=== PATIENT | male | born 1970 | race Caucasian/White ===

== ENCOUNTER 2022-10-09 09:04 | Outpatient (CLI) | payer MEDICAID, SELFPAY ==
[2022-10-09 13:28] LABS: Chloride* 107 mmol/L (96-114); Potassium* 4.4 mmol/L (3.6-5.1); Sodium* 139 mmol/L (135-149)
[2022-10-09 13:30] LABS: Creatinine* 0.8 mg/dL (0.5-1.5); Estimated Glomerular Filt Rate 105 ml/min
[2022-10-09 13:31] LABS: Blood Urea Nitrogen* 12 mg/dL (7-30); Carbon Dioxide* 28 mmol/L (20-32); Glucose* 97 mg/dL (60-115); Triglycerides* 121 mg/dL (40-149)
[2022-10-09 13:32] LABS: Calcium* 9.1 mg/dL (8.4-10.6); HDL Cholesterol* 50 mg/dL (>=40)
[2022-10-10 19:07] LABS: Cholesterol* 176 mg/dL (90-199); LDL Cholesterol Calculated 102 mg/dL (<100)
== END 2022-10-09 09:05 | disposition home or self-care (01) ==
PROVIDERS: PCP Emergency Medicine; Visit Provider Emergency Medicine
DX: Z00.00 Encounter for general adult medical examination without abnormal findings (principal); R03.0 Elevated blood-pressure reading, without diagnosis of hypertension; D69.6 Thrombocytopenia, unspecified; Z12.5 Encounter for screening for malignant neoplasm of prostate; Z13.6 Encounter for screening for cardiovascular disorders
CPT/HCPCS: 80048; 80061

== ENCOUNTER 2022-10-23 18:36 | Outpatient (CLI) | payer MEDICAID, SELFPAY ==
[2022-10-23 22:22] LABS: PSA Screen* 0.65 ng/mL (0.10-4.00)
== END 2022-10-23 18:37 | disposition home or self-care (01) ==
LOC: LKVREF 18:37
PROVIDERS: PCP Emergency Medicine; Visit Provider Emergency Medicine
DX: Z12.5 Encounter for screening for malignant neoplasm of prostate (principal)
CPT/HCPCS: 84153

== ENCOUNTER 2022-11-27 09:30 | Outpatient (RCR) | payer MEDICAID, SELFPAY | END 2023-01-14 14:47 | disposition home or self-care (01) | PROVIDERS: PCP Emergency Medicine; Visit Provider Emergency Medicine | DX: M25.511 Pain in right shoulder (principal); Z51.89 Encounter for other specified aftercare | CPT/HCPCS: 97110; 97140; 97161 ==

== ENCOUNTER 2023-10-15 12:55 | Outpatient (CLI) | payer MEDICAID, SELFPAY | END 2023-10-15 12:56 | disposition home or self-care (01) | LOC: LKVREF 12:56 | PROVIDERS: PCP Emergency Medicine; Visit Provider Emergency Medicine | DX: Z01.818 Encounter for other preprocedural examination (principal) | CPT/HCPCS: 80048 ==

== ENCOUNTER 2023-11-01 11:03 | Day surgery (SDC) | payer MEDICAID, SELFPAY ==
[2023-11-01] VITALS (12 sets, daily range): BP systolic 137–151; BP diastolic 78–100; PULSE 57–81; RESP 12–16; TEMP 36.3–36.7; O2SAT 97–98; BMI 27.9
[2023-11-01] MEDS: LACTATED RINGERS 1000 ML 1,000 ML 100 ML IV (11:55)
[2023-11-01] MEDS: SODIUM CHLORIDE 0.9 % (FLUSH) 10 ML SYRINGE IVF (11:55)
[2023-11-01] MEDS: OXYMETAZOLINE 0.05% NASAL SPRAY 2 SPRAY NOSTRIL-B (12:04)
--- NOTE | 2023-11-01 13:05 | W.ANESCHARGE ---
Anesthesia Charges Start Date/Time Anesthesia Start Date: 11/01/23 Anesthesia Start Time: 12:54 Stop Date/Time Anesthesia Stop Date: 11/01/23 Anesthesia Stop Time: 13:35
[2023-11-01] MEDS: COCAINE HCL 4 % 4 ML SOLUTION NOSTRIL-B (13:08)
[2023-11-01] MEDS: AYR SALINE NASAL GEL 1 APPLIC NOSTRIL-B (13:12)
[2023-11-01] MEDS: MUPIROCIN 1 GM PACKET 1 APPLIC TOPICAL (13:14)
[2023-11-01] MEDS: BUPIVACAINE 0.5 %/EPI 1:200K 3 ML INJECTION (13:23)
--- NOTE | 2023-11-01 13:38 | W.ANESCHARGE ---
Anesthesia Charges Start Date/Time Anesthesia Start Date: 11/01/23 Anesthesia Start Time: 12:54 Stop Date/Time Anesthesia Stop Date: 11/01/23 Anesthesia Stop Time: 13:35
--- NOTE | 2023-11-01 13:48 | P.ENTPROC_ITS ---
Procedure Note Date of procedure: 11/01/23 Procedure: Preop diagnosis nasal obstruction migraine headache that appeared to possibly be nasal, as nasal sinal headaches, deviated septum, inferior turbinate hypertrophy Postoperative diagnosis same Procedure nasal septoplasty, submucous partial resection inferior turbinates Under general endotracheal anesthesia patient was prepped and draped usual fashion the nose decongested injected. The septum was quite tortuous. A right hemitransfixion incision was made and left anterior posterior tunnels were created. A vertical incision was made through the cartilage and a right posterior tunnel created. The posterior deflected portions of septal bone were resected. A large piece was trimmed and returned to the posterior intraseptal space. The left middle turbinate was crushed with the Devyn forceps. A stab incision was made in the anterior of the right inferior turbinate a tunnel created with a [place] dissector. The marie bone was outfractured a conservative anterior submucous resection was performed. The Coblation was used for hemostasis and to cauterize intramurally along the inferior 10%. This was repeated on the left side in identical fashion. The hemitransfixion was closed with 2 4-0 chromic sutures silastic stents secured with 3-0 nylon and a single Merocel pack was placed in each side of the nose after 1st being coated in Bactroban. The patient procedure was taken recovery in satisfactory condition. Blood loss was less than 20 mL. Surgeon: Mahad Jensen MD
== END 2023-11-01 15:00 | disposition home or self-care (01) ==
PROVIDERS: PCP Emergency Medicine; Visit Provider Otolaryngology
PROC: (CPT 30520; principal; 2023-11-01 12:30)
DX: J34.2 Deviated nasal septum (principal); J34.3 Hypertrophy of nasal turbinates; G43.909 Migraine, unspecified, not intractable, without status migrainosus
CPT/HCPCS: 30520; 30140; 00160; A9270; J1100; J2405; J2704; J3010; J3490; J7120

== ENCOUNTER 2024-03-31 08:19 | Outpatient (CLI) | payer OTHER, SELFPAY | END 2024-03-31 08:20 | disposition home or self-care (01) | PROVIDERS: PCP Emergency Medicine; Referring Provider Emergency Medicine; Visit Provider Emergency Medicine | DX: I10 Essential (primary) hypertension (principal); D69.6 Thrombocytopenia, unspecified; Z12.5 Encounter for screening for malignant neoplasm of prostate; Z13.6 Encounter for screening for cardiovascular disorders | CPT/HCPCS: 80048; 80061; G0103 ==

== ENCOUNTER 2024-04-28 07:16 | Outpatient (CLI) | payer OTHER, SELFPAY ==
--- NOTE | 2024-04-28 08:21 | W.ANESCHARGE ---
Anesthesia Charges Start Date/Time Anesthesia Start Date: 04/28/24 Anesthesia Start Time: 08:00 Stop Date/Time Anesthesia Stop Date: 04/28/24 Anesthesia Stop Time: 08:36
--- NOTE | 2024-04-28 08:38 | W.ANESCHARGE ---
Anesthesia Charges Start Date/Time Anesthesia Start Date: 04/28/24 Anesthesia Start Time: 08:00 Stop Date/Time Anesthesia Stop Date: 04/28/24 Anesthesia Stop Time: 08:36
== END 2024-04-28 07:17 | disposition home or self-care (01) ==
LOC: OP CLINIC 07:16
PROVIDERS: PCP Emergency Medicine; Visit Provider Surgery
DX: Z12.11 Encounter for screening for malignant neoplasm of colon (principal); K63.5 Polyp of colon; K62.1 Rectal polyp; K57.30 Diverticulosis of large intestine without perforation or abscess without bleeding; Z86.010 Personal history of colon polyps
CPT/HCPCS: 00811; 45385; 88305; J2704

== ENCOUNTER 2024-05-26 06:58 | Outpatient (CLI) | payer OTHER, SELFPAY ==
--- NOTE | 2024-05-26 07:15 | CRLHL7_ITS ---
For Patients: As a result of the Century Cures Act, medical imaging exams and procedure reports are released immediately into your electronic medical record. You may view this report before your referring provider. If you have questions, please contact your health care provider. Indication: Palpable mass Technique: Grayscale and color Doppler ultrasound of the periumbilical soft tissues performed with and without Valsalva. Comparison: None Findings: Fat filled umbilical hernia is present measuring 3.7 x 2.0 x 3.0 cm. No fluid collection or abnormal vascularity. Impression: 3.7 cm umbilical hernia. Dictated by Mansoor Junior MD @ 05/26/2024 10:36:56 AM (Electronically Signed)
== END 2024-05-26 06:59 | disposition home or self-care (01) ==
LOC: US 06:58
PROVIDERS: PCP Emergency Medicine; Visit Provider Emergency Medicine
DX: R19.00 Intra-abdominal and pelvic swelling, mass and lump, unspecified site (principal); K42.9 Umbilical hernia without obstruction or gangrene; K43.9 Ventral hernia without obstruction or gangrene
CPT/HCPCS: 76705

== ENCOUNTER 2024-06-09 06:16 | Day surgery (SDC) | payer OTHER, SELFPAY ==
[2024-06-09] VITALS (11 sets, daily range): BP systolic 101–138; BP diastolic 60–98; PULSE 65–76; RESP 12–16; TEMP 36.2–36.8; O2SAT 96–99; BMI 28.3
--- OUTSIDE RECORDS SUMMARY | 2024-06-09 06:19 | XMS_ITS | Encounter Summary ---
Author Organization [facility] Address [address] [place] [address] Care Team Providers Care Occupational Health And Safety Officer Name Role Phone No Ref-Primary, Physician Primary Care Provider Adin Roldan DPM Unavailable [phone] Encounter Details Date Type Department Care Team (Late st Contact Info) Description 01/31/2008 Clinic Report (Prepleater) [address] [phone] Fay Smith MD NO INFO AVAILABLE 12/19/2022 Social History Tobacco Use Types Packs/Day Years Used Date Smoking Tobacco: Never Assessed Sex and Gender Information Value Date Recorded Sex Assigned at Not on file Gender Identity Not on file Sexual Orientation Not on file documented as of this encounter Progress Notes * Fay Smith MD - 08/30/2012 1:42 PM CST CC/HPI: Started Sun. afternoon, sore throat, dry cough, headaches and sinus congestion. He presented with cough. In addition, he presented with sinus congestion. The symptom is described as acute. The symptom is sudden in onset and ongoing. The symptom started 6 days ago. The complaint is moderate. The frequency of episodes is increasing. Important triggers include no known associated factors. The symptom is alleviated by medication. The patient also presented with sore throat. Current Medication: Naprosyn 250 mg Tab, 1 Tablet, PO, BID prn and end on June 01, 2008. Codeine-Guaifenesin 10 mg-300 mg/5 mL Oral Liquid, 1-2 Teaspoon(s), PO, Q4-6h, for a total of 4oz, start on October 17, 2007, end on January 31, 2008 and as needed for cough. Codeine-Guaifenesin 10 mg-300 mg/5 mL Oral Liquid, 1-2 Teaspoon(s), PO, Q4-6h, for a total of 4oz, start on October 17, 2007, end on January 31, 2008, as needed for cough and cold gone. ROS: Constitutional: The patient denied chills and fever. Eyes: The patient denied eye pain and vision change. Ears/Nose/Throat/Neck: The patient complained of facial pain, headache, sinus congestion and sore throat but denied nasal discharge and otalgia. Cardiovascular: The patient denied chest pain/pressure and palpitations. Respiratory: The patient complained of cough but denied wheezing. Gastrointestinal: The patient denied constipation and diarrhea. Genitourinary/Nephrology: The patient denied dysuria and urinary frequency. Musculoskeletal: The patient denied arthralgia(s) and myalgias. Dermatologic: The patient denied itching and rash. Neurologic: The patient denied dizziness and headache. Psychiatric: The patient denied insomnia and mood swings. Vital Signs: data collected on 01/31/2008 10:03:55 AM by Toña Garcia weight is 207 pounds clothed sitting heart rate is 78 bpm regular blood pressure at Left Arm while Sitting is 118/78 mmHg PE: Constitutional: GENERAL APPEARANCE: Overall: well nourished, well developed and in no acute distress. Eyes: CONJUNCTIVA/EYELIDS: Overall: conjunctiva clear, cornea clear and eyelids normal; PUPILS AND IRISES: Overall: pupils equal, round, reactive to light and accomodation. Ears/Nose/Throat: EXTERNAL EAR: Overall: normal appearance; EXTERNAL NOSE: Overall: benign appearance, no masses and non-tender; OTOSCOPIC EXAM: Overall: external auditory canals clear and tympanic membranes clear; INTERNAL NOSE: Sinus tenderness: left maxillary and right maxillary; ORAL CAVITY/PHARYNX/LARYNX: Overall: tonsils benign, oropharyngeal mucosa clear and no masses. Respiratory: AUSCULTATION: Overall: breath sounds clear bilaterally; RESPIRATORY EFFORT/RHYTHM: Overall: no retractions and normal rate. Cardiovascular: AUSCULTATION OF HEART: Overall: regular rate, regular rhythm, normal heart sounds and no murmurs. Lymphatic: NECK NODES: Overall: shotty lymphadenopathy. Dx: (461.8) - C - OT ACUTE SINUSITIS 786.2 Cough 462 Pharyngitis, acute Rx: Azithromycin 250 mg Tab, 2 Tablets, PO, day 1, 5 days, for a total of 6, One po day 2 thru 5. Fluticasone 50 mcg/Actuation Nasal [place], Susp, 2 [place], Suspension, NASAL, QD, 30 days, 11 refills, for a total of one. Plan: None Patient Instructions: None documented in this encounter Plan of Treatment Not on file documented as of this encounter Visit Diagnoses Not on filedocumented in this encounter Care Teams Occupational Health And Safety Officer Relationship Specialty Start Date End Date No Ref-Primary, Physician PCP - General 09/04/19 Adin Roldan DPM [id number] [address] Assigned Musculoskeletal Provider 07/07/22 05/28/24 documented as of this encounter
--- OUTSIDE RECORDS SUMMARY | 2024-06-09 06:19 | XMS_ITS | Encounter Summary ---
Author Organization [facility] Address [address] [place] [address] Care Team Providers Care Manager Restaurant Name Role Phone No Ref-Primary, Physician Primary Care Provider Adin Roldan DPM Unavailable [phone] Encounter Details Date Type Department Care Team (Late st Contact Info) Description 10/17/2007 Clinic Report (Software Business Analyst) [address] [phone] Izabela Ospina NP [facility] [address] [place] [id number] Social History Tobacco Use Types Packs/Day Years Used Date Smoking Tobacco: Never Assessed Sex and Gender Information Value Date Recorded Sex Assigned at Not on file Gender Identity Not on file Sexual Orientation Not on file documented as of this encounter Progress Notes * Izabela Ospina NP - 08/30/2012 2:57 PM CST CC/HPI: nasty dry cough, losing voice, face pain, dizzy on Saturday None Current Medication: Naprosyn 250 mg Tab, 1 Tablet, PO, BID prn and end on June 01, 2008. ROS: None Vital Signs: data collected on 10/17/2007 02:45:23 PM by Dea Doran weight is 207 pounds 8.00 ounces clothed temperature is 98.7 F blood pressure at Right Arm while Sitting is 118/68 mmHg PE: None Dx: 461.8 OT ACUTE SINUSITIS Rx: Amoxicillin 500 mg Cap, 1 Capsule, PO, TID, 10 days, for a total of 30. Codeine-Guaifenesin 10 mg-300 mg/5 mL Oral Liquid, 1-2 Teaspoon(s), PO, Q4-6h, for a total of 4oz, as needed for cough. Plan: None Patient Instructions: None K GRADER documented in this encounter Plan of Treatment Not on file documented as of this encounter Visit Diagnoses Not on filedocumented in this encounter Care Teams Manager Restaurant Relationship Specialty Start Date End Date No Ref-Primary, Physician PCP - General 09/04/19 Adin Roldan DPM [phone] [address] Assigned Musculoskeletal Provider 07/07/22 05/28/24 documented as of this encounter
--- OUTSIDE RECORDS SUMMARY | 2024-06-09 06:19 | XMS_ITS | Referral Summary ---
Author Organization [facility] Address [address] [place] [address] Care Team Providers Care Store Promoter Name Role Phone No Ref-Primary, Physician Primary Care Provider Allergies Active Allergy Reactions Criticality Noted Date Comments Hydrocodone-Acetaminophen 12/10/2020 Bad reacation Medications No known medications Active Problems No known active problems Resolved Problems Problem Noted Date Diagnosed Date Resolved Date iamSPRAIN ROTATOR CUFF 06/14/200508/02 Immunizations Name Administration Dates Next Due TDAP (Adacel,Boostrix) 12/10/2020 Social History Tobacco Use Types Packs/Day Years Used Date Smoking Tobacco: Never Smokeless Tobacco: Never Tobacco Cessation:Counseling Given: Not Answered Alcohol Use Standard Drinks/Week Comments Yes 0 (1 standard drink = 0.6 oz pur e alcohol) rare Adolescent Education Answer Date Record ed Getting School Help Needed Not on file 06/30 Sex and Gender Information Value Date Recorded Sex Assigned at Not on file Gender Identity Not on file Sexual Orientation Not on file Last Filed Vital Signs Vital Sign Reading Time Taken Comments Blood Pressure 146/94 08/27/2023 3:49 PM ART PSYCHOTHERAPIST OR THERAPIST Pulse 64 08/27/2023 3:49 PM ART PSYCHOTHERAPIST OR THERAPIST Temperature 36.7 ??C (98.1 ??F) 08/27/2023 3:49 PM CS T Respiratory Rate 14 08/27/2023 3:49 PM ART PSYCHOTHERAPIST OR THERAPIST Oxygen Saturation 98% 08/27/2023 3:49 PM ART PSYCHOTHERAPIST OR THERAPIST Inhaled Oxygen Concentration - - Weight 94.8 kg (209 lb) 08/27/2023 3:49 PM ART PSYCHOTHERAPIST OR THERAPIST Height - - Body Mass Index - - Plan of Treatment Not on file Procedures Procedure Name Priority Date/Time Associated Diagnosis Comments GLUCOSE SERUM ([facility]) Routine 12/28/2010 6:07 PM CDT LIPID PANEL ([facility]) Routine 12/28/2010 6:07 PM CDT from Last 3 Months or Most Recently Relevant to Health Maintenance Results * (ABNORMAL) Lipid Panel ([facility]) (12/28/2010 6:07 PM CDT) Cholesterol 180 100 - 199 mg/dL [facility] HISTORICAL RESULTS Triglycerides 128 0 - 149 mg/dL [facility]ISTORICAL RESULTS HDL Cholesterol 48 >39 mg/dL [facility]OR[facility] RESULTS Comment: According to ATP-III Guidelines, HDL-C >59 mg/dL is considered a ?? negative risk factor for CHD. ?? VLDL Cholesterol Neil 26 5 - 40 mg/dL [facility] HISTORICAL RESULTS LDL Cholesterol Calculated 106(H) 0 - 99 mg/dL [facility] HISTORICAL RESULTS 12/28/2010 6:07 PM CDT 12/29/2010 6:36 PM CDT Jayy Smith MD LAB - [facility] Performing Organization Address City/[facility] Co de Phone Number [facility] HISTORICAL RESULTS * Glucose Serum ([facility]) (12/28/2010 6:07 PM CDT) Glucose 75 65 - 99 mg/dL [facility] HISTORICAL RESULTS 12/28/2010 6:07 PM CDT 12/29/2010 6:36 PM CDT Jayy Smith MD LAB - [facility] HISTORICAL RESULTS from Last 3 Months or Most Recently Relevant to Health Maintenance Care Teams Store Promoter Relationship Specialty Start Date End Date No Ref-Primary, Physician PCP - General 09/04/19
--- OUTSIDE RECORDS SUMMARY | 2024-06-09 06:19 | XMS_ITS | Encounter Summary ---
Author Organization [facility] Address [address] [place] [address] Care Team Providers Care Rubber Grinder Name Role Phone No Ref-Primary, Physician Primary Care Provider Adin Roldan DPM Unavailable [phone] Encounter Details Date Type Department Care Team (Late st Contact Info) Description 12/25/2010 Clinic Report (Director Business Development) [facility] [address] [place] [address] [address] [place] [phone] Lee Shankar MD [address] [place] [address] Social History Tobacco Use Types Packs/Day Years Used Date Smoking Tobacco: Never Assessed Sex and Gender Information Value Date Recorded Sex Assigned at Not on file Gender Identity Not on file Sexual Orientation Not on file documented as of this encounter Progress Notes * Lee Shnakar MD - 08/30/2012 12:01 AM CST CC/HPI: He presented with hernia. It is located in the right inguinal canal. The symptom is described as acute. The symptom is gradual in onset. The symptom started 1 days ago. The frequency of episodes is unchanged. ROS: None Vital Signs: data collected on 12/25/2010 03:00:01 PM by Harleen Sheppard weight is 208 pounds clothed sitting heart rate is 74 bpm regular blood pressure at Left Arm while Sitting is 126/78 mmHg PE: Constitutional: GENERAL APPEARANCE: Overall: well nourished, well developed and in no acute distress. Abdomen: HERNIA EXAM: Right inguinal hernia present: reducible. Dx: (550.90) - C - Hernia, Inguinal, NOS, unilateral Rx: None Plan: Referred to for evaluation of hernia. Patient Instructions: None documented in this encounter Plan of Treatment Not on file documented as of this encounter Visit Diagnoses Not on filedocumented in this encounter Care Teams Rubber Grinder Relationship Specialty Start Date End Date No Ref-Primary, Physician PCP - General 09/04/19 Adin Roldan DPM [phone] [address] Assigned Musculoskeletal Provider 07/07/22 05/28/24 documented as of this encounter
--- OUTSIDE RECORDS SUMMARY | 2024-06-09 06:19 | XMS_ITS | Encounter Summary ---
Author Organization [facility] Address [address] [place] [address] Care Team Providers Care Sizing Sprayer Name Role Phone No Ref-Primary, Physician Primary Care Provider Adin Roldan DPM Unavailable [phone] Encounter Details Date Type Department Care Team (Late st Contact Info) Description 12/28/2010 Clinic Report (Communications Controller) [address] [phone] Avtar Wiley [place] [address] Social History Tobacco Use Types Packs/Day Years Used Date Smoking Tobacco: Never Assessed Sex and Gender Information Value Date Recorded Sex Assigned at Not on file Gender Identity Not on file Sexual Orientation Not on file documented as of this encounter Progress Notes * Avtar Wiley MD - 08/29/2012 11:58 PM CST CC/HPI: He presented with hernia. Right side. It is located in the right inguinal canal. The symptom is described as acute. The symptom is sudden in onset. The symptom started 5 days ago. The complaint is mild. The frequency of episodes is unchanged. ROS: Constitutional: The patient denied fever and recent illness. Gastrointestinal: The patient denied abdominal pain, gas and bloating, nausea and vomiting. Genitourinary/Nephrology: The patient complained of hernia. Vital Signs: data collected on 12/28/2010 08:54:02 AM by Elo Gonzalez weight is 206 pounds 3.20 ounces clothed height is 6 feet body mass index is 28.75 Kg/m2 sitting heart rate is 76 bpm radial regular blood pressure at Left Arm while Sitting is 124/80 mmHg PE: Constitutional: GENERAL APPEARANCE: Overall: well nourished, well developed and in no acute distress. Abdomen: ABDOMINAL EXAM: Overall: no tenderness and normal bowel sounds; HERNIA EXAM: Right inguinal hernia present: non-tender and reducible. Dx: (550.90) - C - Hernia, Inguinal, NOS, unilateral ( right) Rx: None Plan: None Patient Instructions: None documented in this encounter Plan of Treatment Not on file documented as of this encounter Visit Diagnoses Not on filedocumented in this encounter Care Teams Sizing Sprayer Relationship Specialty Start Date End Date No Ref-Primary, Physician PCP - General 09/04/19 Adin Roldan DPM [phone] [address] Assigned Musculoskeletal Provider 07/07/22 05/28/24 documented as of this encounter
--- OUTSIDE RECORDS SUMMARY | 2024-06-09 06:19 | XMS_ITS | Encounter Summary ---
Author Organization [facility] Address [address] [place] [address] Care Team Providers Care Cryptographic Technician Name Role Phone No Ref-Primary, Physician Primary Care Provider Adin Roldan DPM Unavailable [phone] Encounter Details Date Type Department Care Team (Late st Contact Info) Description 12/28/2010 Clinic Report (Slip Filler) [address] [phone] Jayy Smith MD NO INFO AVAILABLE 08/10/2022 Social History Tobacco Use Types Packs/Day Years Used Date Smoking Tobacco: Never Assessed Sex and Gender Information Value Date Recorded Sex Assigned at Not on file Gender Identity Not on file Sexual Orientation Not on file documented as of this encounter Progress Notes * Jayy Smith N - 08/29/2012 11:58 PM CST CC/HPI: HERNIA RECNETLY POPPED OUT LAST WEEKEND. ON RIHGT SIDE. AGE 3 OR 4 HAD SURGERY ON UNDESCENDED TESTICLE. THAT WAS ON left side.no aneshtesia reactions. He presented with preop. Surgery at [facility]. The patient has been referred by Dr. Wiley. The procedure to be performed is Hernia surgery. The procedure has been scheduled on 01/01/2011. Pertinent other conditions include immunizations up to date, no anesthesia complications, No history of bleeding disorder, No complication of surgery and No transfusion reaction. Significant medications include No aspirin use and no steroid use. Family history is significant for No anesthesia complications and No history of bleeding disorder. Patient denies fever, pain, hematoma, excess swelling and redness around the incision site. ROS: rare alcohol. no tobacco. no work exposure to fumes/solvents. fam hx- dad - was smoker; mother is alive and well. Constitutional: The patient denied chills, diaphoresis and fatigue. Eyes: The patient denied blindness (contacts. ), eye discharge and eye foreign body. Ears/Nose/Throat/Neck: The patient denied cerumen, nosebleed and cosmetic deformity. Cardiovascular: The patient denied arrhythmia, chest pain/pressure and claudication. Respiratory: The patient denied asthma, chest congestion and chest tightness. Gastrointestinal: The patient denied abdominal pain (no hx hepatitis. no blood transfusions), anorexia and constipation. Genitourinary/Nephrology: The patient denied anuria/oliguria (kidney stone in past.), breast complaint and dysuria. Musculoskeletal: The patient denied arthralgia(s), back pain and bone fracture. Dermatologic: The patient denied acne, alopecia and cellulitis. Neurologic: The patient denied dizziness, gait abnormality and headache. Psychiatric: The patient denied alcohol abuse, anxiety and conversion/dissociative phenom. Endocrine: The patient denied chills, diabetes mellitus type 1 and diabetes mellitus type 2. Hematologic/Lymphatic: The patient denied abnormal bleeding and bruising, abnormal ecchymoses and anemia. Allergy/Immunology: The patient denied anaphylactoid reaction, angioedema and food allergy. Vital Signs: data collected on 12/28/2010 11:33:18 AM by Yolis Marks weight is 206 pounds clothed w/ shoes height is 6 feet body mass index is 28.33 Kg/m2 sitting heart rate is 76 bpm regular blood pressure at Left Arm while Sitting is 110/80 mmHg PE: Constitutional: GENERAL APPEARANCE: Overall: well nourished, well developed and in no acute distress. Eyes: CONJUNCTIVA/EYELIDS: Overall: conjunctiva clear, cornea clear and eyelids normal; PUPILS AND IRISES: Overall: pupils equal, round, reactive to light and accomodation. Ears/Nose/Throat: EXTERNAL EAR: Overall: normal appearance; EXTERNAL NOSE: Overall: benign appearance, no masses and non-tender; OTOSCOPIC EXAM: Overall: external auditory canals clear and tympanic membranes clear; ORAL CAVITY/PHARYNX/LARYNX: Overall: tonsils benign, oropharyngeal mucosa clear and no masses. Respiratory: AUSCULTATION: Overall: breath sounds clear bilaterally; RESPIRATORY EFFORT/RHYTHM: Overall: no retractions and normal rate. Cardiovascular: AUSCULTATION OF HEART: Overall: regular rate, regular rhythm, normal heart sounds and no murmurs. Abdomen: ABDOMINAL EXAM: Overall: no tenderness and normal bowel sounds; LIVER AND SPLEEN EXAM: Overall: no hepatosplenomegaly. Lymphatic: OTHER NODES: Overall: occipital chain benign, auricular chain benign and supraclavicular chain benign. Musculoskeletal: RIGHT LOWER EXTREMITY: Overall: full strength in RLE and normal RLE bulk and tone; LEFT LOWER EXTREMITY: Overall: full strength in LLE and normal LLE bulk and tone. Integument: INSPECTION OF SKIN: Overall: no rash, lesions. Neurologic: DEEP TENDON REFLEXES: Overall: deep tendon reflexes intact; COORDINATION: Overall: no tremors; CRANIAL NERVES: Overall: cranial nerves 2-12 intact. Psychiatric: BEHAVIOR/PSYCHOMOTOR ACTIVITY: Overall: no tics, normal psychomotor activity; MOOD AND AFFECT: Overall: normal mood and affect; APPEARANCE: Overall: well-groomed, good eye contact; SPEECH: Overall: normal quality, no aphasia and normal quality, quantity, rate; THOUGHT: Overall: normal form and content; COGNITION/MEMORY: Overall: immediate, recent, remote memory intact and normal concentration, intelligence. Dx: screen lipid; screen vit d deficiency (550.90) - C - Hernia, Inguinal, NOS, unilateral (V72.83) - C - Preop (V78.0) - C - Screening, anemia, deficiency, iron (V77.1) - C - Screening, diabetes mellitus (V77.91) - C - Screening, lipids (V82.9) - C - Screening, vitamin d deficiency Rx: Vitamin D 5,000 unit Tab, 2 Tablet(s), PO, daily, 30 days, 7 refills, for a total of 60, start on December 31, 2010, end on August 27, 2011. Plan: OK FOR ANESTHESIA FOR HERNIA REPAIR He was given this form: 'Patient Medication Summary'. Patient Instructions: None documented in this encounter Plan of Treatment Not on file documented as of this encounter Visit Diagnoses Not on filedocumented in this encounter Care Teams Cryptographic Technician Relationship Specialty Start Date End Date No Ref-Primary, Physician PCP - General 09/04/19 Adin Roldan DPM [phone] [address] Assigned Musculoskeletal Provider 07/07/22 05/28/24 documented as of this encounter
--- OUTSIDE RECORDS SUMMARY | 2024-06-09 06:19 | XMS_ITS | Encounter Summary ---
Author Organization [facility] Address [address] [place] [address] Care Team Providers Care Concrete Products Machine Operator Name Role Phone No Ref-Primary, Physician Primary Care Provider Adin Roldan DPM Unavailable [phone] Encounter Details Date Type Department Care Team (Late st Contact Info) Description 01/01/2011 Clinic Report (Television Production Technician) [address] [phone] Avtar Wiley MD [place] [address] Social History Tobacco Use Types Packs/Day Years Used Date Smoking Tobacco: Never Assessed Sex and Gender Information Value Date Recorded Sex Assigned at Not on file Gender Identity Not on file Sexual Orientation Not on file documented as of this encounter Progress Notes * Avtar Wiley MD - 08/29/2012 11:56 PM CST CC/HPI: None Current Medication: Vitamin D 5,000 unit Tab, 2 Tablet(s), PO, daily, 30 days, 7 refills, for a total of 60, start on December 31, 2010 and end on August 27, 2011. ROS: None PE: None Dx: (550.90) - C - Hernia, Inguinal, NOS, unilateral ( Right) Rx: None Plan: None Patient Instructions: None documented in this encounter Plan of Treatment Not on file documented as of this encounter Visit Diagnoses Not on filedocumented in this encounter Care Teams Concrete Products Machine Operator Relationship Specialty Start Date End Date No Ref-Primary, Physician PCP - General 09/04/19 Adin Roldan DPM [id number] [address] Assigned Musculoskeletal Provider 07/07/22 05/28/24 documented as of this encounter
--- OUTSIDE RECORDS SUMMARY | 2024-06-09 06:19 | XMS_ITS | Encounter Summary ---
Author Organization [facility] Address [address] [place] [address] Care Team Providers Care Microfabrication Engineer Manager Name Role Phone No Ref-Primary, Physician Primary Care Provider Adin Roldan DPM Unavailable [phone] Encounter Details Date Type Department Care Team (Late st Contact Info) Description 05/23/2007 Clinic Report (Associate Principal) [facility] [address] [place] [address] [address] [place] [phone] Lee Shankar MD XXX RETIRED JUL [address] [place], [place] [id number] Social History Tobacco Use Types Packs/Day Years Used Date Smoking Tobacco: Never Assessed Sex and Gender Information Value Date Recorded Sex Assigned at Not on file Gender Identity Not on file Sexual Orientation Not on file documented as of this encounter Progress Notes * Lee Shankar MD - 08/30/2012 4:32 PM CST CC/HPI: He presented with foot pain. rt grt toe. It is located on the right and at the MP joint of the great toe. The symptom is described as dull pain and chronic. The symptom is ongoing. The symptom started _ weeks ago. The frequency of episodes is weekly. Episodes last _ minutes to hours. The complaint allows weight bearing activity and does not limit activities. The complaint is mild. Significant medications include NSAID's. Mechanism of injury includes unknown. The symptom is alleviated by NSAID's. Initial therapy includes NSAIDs. Patient denies pain with movement, redness and warmth. ROS: Musculoskeletal: The patient complained of arthralgia(s). Dermatologic: The patient denied onychodystrophy and paronychia. Vital Signs: Ck. Gt. toe on Rt. foot; pnful. and somewhat swollen x past wk.? Hurts more when sitting. data collected on 05/23/2007 04:16:22 PM by Lee Shankar M.D. weight is 196 pounds clothed sitting heart rate is 60 bpm radial regular blood pressure at Left Arm while Sitting is 120/62 mmHg PE: Musculoskeletal: DIGITS AND NAILS: Overall: no clubbing and digits benign; RIGHT LOWER EXTREMITY: Inspection - right foot: a normal exam Palpation - right foot: a normal exam; ROM - right foot: a normal exam. Dx: right great toe pain 729.5 Pain in limb Rx: Naprosyn 250 mg Tab, 1 Tablet, PO, BID prn. Plan: None Patient Instructions: None * Lee Shankar MD - 08/30/2012 4:32 PM CST CC/HPI: None Current Medication: Naprosyn 250 mg Tab, 1 Tablet, PO, BID prn and end on June 01, 2008. ROS: None PE: None Dx: (729.5) - C - Pain in limb Rx: None Plan: None Patient Instructions: None documented in this encounter Plan of Treatment Not on file documented as of this encounter Visit Diagnoses Not on filedocumented in this encounter Care Teams Microfabrication Engineer Manager Relationship Specialty Start Date End Date No Ref-Primary, Physician PCP - General 09/04/19 Adin Roldan DPM [id number] [address] Assigned Musculoskeletal Provider 07/07/22 05/28/24 documented as of this encounter
--- OUTSIDE RECORDS SUMMARY | 2024-06-09 06:19 | XMS_ITS | Encounter Summary ---
Author Organization [facility] Address [address] [place] [address] Care Team Providers Care Bracelet Maker Novelty Name Role Phone No Ref-Primary, Physician Primary Care Provider Adin Roldan DPM Unavailable [phone] Encounter Details Date Type Department Care Team (Late st Contact Info) Description 11/01/2009 Clinic Report (Sea Captain) [address] [phone] Hortensia Ascencio DO Social History Tobacco Use Types Packs/Day Years Used Date Smoking Tobacco: Never Assessed Sex and Gender Information Value Date Recorded Sex Assigned at Not on file Gender Identity Not on file Sexual Orientation Not on file documented as of this encounter Progress Notes * Hortensia Ascencio DO - 08/30/2012 5:31 AM CST CC/HPI: He presented with cough. It is located in the lung. The symptom is described as acute. The symptom is sudden in onset. The symptom started 1 weeks ago. The frequency of episodes is daily. ROS: Constitutional: The patient denied chills and fever. Eyes: The patient denied eye discharge. Ears/Nose/Throat/Neck: The patient complained of nasal discharge and sinus congestion but denied nosebleed and sore throat. Respiratory: The patient complained of cough but denied asthma and dyspnea/shortness of breath. Gastrointestinal: The patient denied diarrhea and vomiting. Vital Signs: data collected on 11/01/2009 02:44:02 PM by Carissa Ervin weight is 210 pounds clothed sitting heart rate is 68 bpm radial regular blood pressure at Left Arm while Sitting is 130/90 mmHg PE: Constitutional: GENERAL APPEARANCE: Overall: well nourished, well developed and in no acute distress. Eyes: CONJUNCTIVA/EYELIDS: Overall: conjunctiva clear. Ears/Nose/Throat: OTOSCOPIC EXAM: Overall: external auditory canals clear and tympanic membranes clear; INTERNAL NOSE: Drainage: white; Sinus tenderness: left frontal and right frontal; ORAL CAVITY/PHARYNX/LARYNX: Overall: oropharyngeal mucosa clear. Neck: INSPECTION OF NECK: Overall: normal size, normal appearance, no masses and absence of swelling. Respiratory: AUSCULTATION: Overall: breath sounds clear bilaterally. Cardiovascular: AUSCULTATION OF HEART: Overall: regular rate, regular rhythm, normal heart sounds and no murmurs. Abdomen: ABDOMINAL EXAM: Overall: no tenderness and normal bowel sounds. Lymphatic: NECK NODES: Overall: anterior cervical chain benign and posterior cervical chain benign. Dx: 461.9 Sinusitis, acute, NOS 465.9 Upper respiratory infection, acute, NOS 477.9 Rhinitis, allergic, cause unspecified Rx: Nasacort AQ 55 mcg Nasal [place]utz Aerosol, NASAL, for a total of 2 bottles, start on November 01, 2009, end on October 31, 2009, 1-2 sprays to each nostril once a day for 2 weeks. exp , 2 samples. Zithromax Z-Héctor 250 mg Tab, PO, 5 days, for a total of 6, start on November 01, 2009, end on November 05, 2009, 2 tablets po day 1 then 1 tablet po each day, days 2-5.. Plan: Nasacort AQ 1-2 sprays to each nostril once a day for 2 weeks. 2 samples given. Zithromax zpak, 250 mg, 2 tabs po day 1 then 1 tab po each day, days 2-5. note off today and tomorrow, return . borderline bp, pt asymptomatic, pt will keep a close eye on bp. Symptomatic measures. I advised patient to make a recheck doctor appointment in the next 24-48 hours if significant improvement not noted by that time, follow-up earlier as needed. I reviewed the risks, benefits, and alternatives of plan, and the patient understands, agrees, and wishes to proceed. Patient Instructions: None THCARE TRANSLATOR documented in this encounter Plan of Treatment Not on file documented as of this encounter Visit Diagnoses Not on filedocumented in this encounter Care Teams Bracelet Maker Novelty Relationship Specialty Start Date End Date No Ref-Primary, Physician PCP - General 09/04/19 Adin Roldan DPM [id number] [address] Assigned Musculoskeletal Provider 07/07/22 05/28/24 documented as of this encounter
--- OUTSIDE RECORDS SUMMARY | 2024-06-09 06:19 | XMS_ITS | Encounter Summary ---
Author Organization [facility] Address [address] [place] [address] Care Team Providers Care Control Manager Name Role Phone No Ref-Primary, Physician Primary Care Provider Adin Roldan DPM Unavailable [phone] Encounter Details Date Type Department Care Team (Late st Contact Info) Description 05/01/2012 Clinic Report (Chaser Apprentice) [facility] [address] [place] [phone] Kalia Grullon MD [place] [address] [place] [address] Social History Tobacco Use Types Packs/Day Years Used Date Smoking Tobacco: Never Assessed Sex and Gender Information Value Date Recorded Sex Assigned at Not on file Gender Identity Not on file Sexual Orientation Not on file documented as of this encounter Progress Notes * Kalia Grullon MD - 08/29/2012 5:57 PM CST CC/HPI: here with his had hernia surgery 18 mo ago He presented with pain. It is located in the groin area. It is located in the right groin area. The symptom is described as acute. The symptom is gradual in onset. The symptom started 4 months ago. The complaint does not limit activities occassionally. Current Medication: Fish Oil Concentrate Cap, 2 Capsule(s), PO, daily, 30 days, for a total of 60, start on May 01, 2012, end on May 30, 2012 and 2000 IU. Vitamin B Complex Tab, 1 Tablet(s), PO, daily, 30 days, for a total of 30, start on May 01, 2012 and end on May 30, 2012. Zyrtec Oral. ROS: Constitutional: The patient denied fatigue, fever, insomnia, night sweats, recent illness and weight loss. Gastrointestinal: The patient denied abdominal pain, constipation, diarrhea, gastroesophageal reflux, hemorrhoids, melena, nausea and vomiting. Genitourinary/Nephrology: The patient complained of hernia (history) but denied dysuria, nocturia and urinary incontinence. Musculoskeletal: The patient complained of myalgias but denied muscle weakness, stiffness and swelling. Vital Signs: data collected on 05/01/2012 09:40:56 AM by Dawn Pimentel weight is 211 pounds clothed sitting heart rate is 76 bpm regular blood pressure at Left Arm while Sitting is 124/84 mmHg PE: Constitutional: GENERAL APPEARANCE: Overall: well nourished, well developed and in no acute distress. Abdomen: ABDOMINAL EXAM: Skin: presence of a scar; Suprapubic: tender to palpation, dull pain, no guarding, no rebound tenderness and no mass lesions; HERNIA EXAM: Overall: no hernias present. Dx: (550.90) - C - Hernia, Inguinal, NOS, unilateral (Post surgery repair) Rx: Naprosyn 500 mg Tab, 1 Tablet(s), PO, BID, 30 days, 1 refills, for a total of 60, start on May 01, 2012, end on June 29, 2012. Plan: A return visit is indicated in 1 month. He was given this form: 'Patient Medication Summary'. Patient Instructions: reassured, no evidence of recurrent hernia documented in this encounter Plan of Treatment Not on file documented as of this encounter Visit Diagnoses Not on filedocumented in this encounter Care Teams Control Manager Relationship Specialty Start Date End Date No Ref-Primary, Physician PCP - General 09/04/19 Adin Roldan DPM [id number] [address] Assigned Musculoskeletal Provider 07/07/22 05/28/24 documented as of this encounter
--- OUTSIDE RECORDS SUMMARY | 2024-06-09 06:19 | XMS_ITS | Encounter Summary ---
Author Organization [facility] Address [address] [place] [address] Care Team Providers Care Pin Drafter Name Role Phone No Ref-Primary, Physician Primary Care Provider Adin Roldan DPM Unavailable [phone] Encounter Details Date Type Department Care Team (Late st Contact Info) Description 06/02/2008 Clinic Report (Hand Funnel Coater) [facility] [address] [place] [address] [address] [place] [phone] Lee Shankar MD XXX RETIRED JUL [address] [place], [place] [id number] Social History Tobacco Use Types Packs/Day Years Used Date Smoking Tobacco: Never Assessed Sex and Gender Information Value Date Recorded Sex Assigned at Not on file Gender Identity Not on file Sexual Orientation Not on file documented as of this encounter Progress Notes * Lee Shankar MD - 08/30/2012 12:12 PM CST CC/HPI: He next presented with shoulder pain. It is located on the right shoulder. The symptom is described as aching. The symptom is sudden in onset. The symptom started 2 weeks ago. The complaint moderately limits activities like lifting.. Pertinent other conditions include trauma with partial rotator cuff tear.. Mechanism of injury includes lifting while at work of water bottles.. Current Medication: Fluticasone 50 mcg/Actuation Nasal [place], Susp, 2 [place], Suspension, NASAL, QD, 30 days, 11 refills, for a total of one, start on January 31, 2008 and end on January 25, 2009. ROS: Constitutional: The patient denied recent illness. Musculoskeletal: The patient denied muscle weakness, stiffness and swelling. Neurologic: The patient denied paresthesia and weakness. Vital Signs: data collected on 06/02/2008 04:23:19 PM by Brenda Ngo weight is 210 pounds clothed sitting heart rate is 60 bpm radial regular blood pressure at Left Arm while Sitting is 124/86 mmHg PE: Constitutional: GENERAL APPEARANCE: Overall: well nourished, well developed and in no acute distress. Musculoskeletal: RIGHT UPPER EXTREMITY: Inspection - right shoulder: a normal exam Palpation - right shoulder: tenderness @ biceps tendon ROM - right shoulder: a normal exam Stability - right shoulder: a normal exam Muscle Strength/Tone - right shoulder: a normal exam Inspection - right upper arm: a normal exam Palpation - right upper arm: normal on palpation; Muscle Strength/Tone - right upper arm: biceps: a normal exam and triceps: a normal exam; LEFT UPPER EXTREMITY: Overall: normal left shoulder. Dx: 726.12 Bicipital tenosynovitis Rx: Naprosyn 500 mg Tab, 1 Tablet(s), PO, BID, 30 days, 2 refills, for a total of 60. Plan: None Patient Instructions: None documented in this encounter Plan of Treatment Not on file documented as of this encounter Visit Diagnoses Not on filedocumented in this encounter Care Teams Pin Drafter Relationship Specialty Start Date End Date No Ref-Primary, Physician PCP - General 09/04/19 Adin Roldan DPM [address] [place] [address] Assigned Musculoskeletal Provider 07/07/22 05/28/24 documented as of this encounter
--- OUTSIDE RECORDS SUMMARY | 2024-06-09 06:19 | XMS_ITS | Encounter Summary ---
Author Organization [facility] Address [address] [place] [address] Care Team Providers Care Dogman/Woman Name Role Phone No Ref-Primary, Physician Primary Care Provider Adin Roldan DPM Unavailable [phone] Encounter Details Date Type Department Care Team (Late st Contact Info) Description 01/09/2011 Clinic Report (Extension Course Coordinator) [address] [phone] Avtar Wiley MD [place] [address] Social History Tobacco Use Types Packs/Day Years Used Date Smoking Tobacco: Never Assessed Sex and Gender Information Value Date Recorded Sex Assigned at Not on file Gender Identity Not on file Sexual Orientation Not on file documented as of this encounter Progress Notes * Avtar Wiley MD - 08/29/2012 11:49 PM CST CC/HPI: He presented for post-op. The procedure performed was an excision of right inguinal hernia. The date of the procedure was 01/01/2011. The patient is recovering well reports no problems at home.. Current Medication: Vitamin D 5,000 unit Tab, 2 Tablet(s), PO, daily, 30 days, 7 refills, for a total of 60, start on December 31, 2010 and end on August 27, 2011. ROS: None Vital Signs: data collected on 01/09/2011 08:01:56 AM by Elo Gonzalez weight is 0 pounds 3.20 ounces clothed height is 6 feet body mass index is 0.02 Kg/m2 sitting heart rate is 76 bpm radial regular blood pressure at Right Arm while Sitting is 128/84 mmHg PE: None Dx: (550.90) - C - Hernia, Inguinal, NOS, unilateral ( right) Rx: None Plan: None Patient Instructions: OK to return to light duty work on 01/13/11, then full duty on 02/19/11. documented in this encounter Plan of Treatment Not on file documented as of this encounter Visit Diagnoses Not on filedocumented in this encounter Care Teams Dogman/Woman Relationship Specialty Start Date End Date No Ref-Primary, Physician PCP - General 09/04/19 Adin Roldan DPM [address] [place] [address] Assigned Musculoskeletal Provider 07/07/22 05/28/24 documented as of this encounter
--- OUTSIDE RECORDS SUMMARY | 2024-06-09 06:19 | XMS_ITS | Clinical Summary ---
Author Organization [facility] Address [address] [place] [address] Care Team Providers Care Utilization Engineer Name Role Phone No Ref-Primary, Physician Primary [...] Comments Blood Pressure 146/94 08/27/2023 3:49 PM CUSTOMS GUARD Pulse 64 08/27/2023 3:49 PM CUSTOMS GUARD Temperature 36.7 ??C (98.1 ??F) 08/27/2023 3:49 PM CS T Respiratory Rate 14 08/27/2023 3:49 PM CUSTOMS GUARD Oxygen Saturation 98% 08/27/2023 3:49 PM CUSTOMS GUARD Inhaled Oxygen Concentration - - Weight 94.8 kg (209 lb) 08/27/2023 3:49 PM CUSTOMS GUARD Height - - Body Mass Index - - Plan of Treatment Health Maintenance Due Date Last Done Comments ADVANCE CARE PLANNING 1968 ANNUAL REVIEW OF HM ORDERS 1968 CT COLONOGRAPHY 1968 FIT 1968 FLEX SIG 1968 YEARLY PREVENTIVE VISIT 1968 sDNA (Cologuard) 1968 COLONOSCOPY 1978 COLORECTAL CANCER SCREENING 1978 HIV SCREENING 1983 HEPATITIS C SCREENING 1986 HEPATITIS B IMMUNIZATION (1 of 3 - 19+ 3-dose series) 1987 GLUCOSE 12/28/2013 12/28/2010 LIPID 12/29/2015 12/28/2010 ZOSTER IMMUNIZATION (1 of 2) 2018 PHQ-2 (once per calendar year) 2023 COVID-19 Vaccine ( season) 2024 10/04/2021, 03/12/2021, 02/12/2021, Additional history exists INFLUENZA VACCINE (#1) 2024 3, 07/02/2020, 08/13/2019, Additional history exists DTAP/TDAP/TD IMMUNIZATION (3 - Td or Tdap) 12/10/2030 12/10/2020, 10/30/2018 HPV IMMUNIZATION Aged Out No longer e ligible based on patient's age to complete this topic MENINGITIS IMMUNIZATION Aged Out No l onger eligible based on patient's age to complete this topic Pneumococcal Vaccine: Pediatrics (0 to 5 Years) and At-Risk Patients (6 to 64 Years) Aged Out No longer eligible based on patient's age to complete this topic RSV MONOCLONAL ANTIBODY Aged Out No l onger eligible based on patient's age to complete this topic Procedures Procedure Name Priority Date/Time Associated Diagnosis [...] CDT Jayy Smith MD LAB - [facility] HISTORICAL RESULTS * Glucose Serum ([facility]) (12/28/2010 6:07 PM CDT) Glucose 75 65 - 99 mg/dL [facility] HISTORICAL RESULTS 12/28/2010 6:07 PM CDT 12/29/2010 6:36 PM CDT Jayy Smith MD LAB - [facility] HISTORICAL RESULTS from Last 3 Months or Most Recently Relevant to Health Maintenance Care Teams Utilization Engineer Relationship Specialty Start Date End Date No Ref-Primary, Physician PCP - General 09/04/19
[2024-06-09] MEDS: LACTATED RINGERS 1000 ML 1,000 ML 100 ML IV ×2 (06:45→08:49)
[2024-06-09] MEDS: SODIUM CHLORIDE 0.9 % (FLUSH) 10 ML SYRINGE IVF (06:45)
--- NOTE | 2024-06-09 07:27 | W.PM.H&PU ---
History & Physical Update History & Physical Update H&P Reviewed and patient assessed: The following changes are noted below H&P Updates: Patient complains of right testicular swelling for the past week. It is not painful. On clinical exam patient's right hemiscrotum is enlarged and I am having trouble palpating the borders of the right testicle. This is not tender to palpation, this is not reducible as the hernia would. This most likely hydrocele. Will obtain scrotal ultrasound. Okay to proceed with open ventral hernia repair.
[2024-06-09] MEDS: CEFAZOLIN 2 GM INJ IVP (07:36)
[2024-06-09] MEDS: BUPIVACAINE 0.5% 30 ML 10 ML INJECTION (07:44)
--- NOTE | 2024-06-09 08:07 | W.ANESCHARGE ---
Anesthesia Charges Start Date/Time Anesthesia Start Date: 06/09/24 Anesthesia Start Time: 07:26 Stop Date/Time Anesthesia Stop Date: 06/09/24 Anesthesia Stop Time: 09:09
--- NOTE | 2024-06-09 08:09 | W.ANESCHARGE ---
Anesthesia Charges Start Date/Time Anesthesia Start Date: 06/09/24 Anesthesia Start Time: 07:26 Stop Date/Time Anesthesia Stop Date: 06/09/24 Anesthesia Stop Time: 09:09
--- NOTE | 2024-06-09 08:57 | P.GSOP_ITS ---
Operative Note Date of procedure: 06/09/24 Pre-op diagnosis: 1. Symptomatic Supraumbilical/ventral hernia. Post-op diagnosis: 1. 2 supraumbilical hernia defects with incarcerated preperitoneal fat. Type of Procedure: 1. Open Ventral hernia repair with mesh. Indications: 53-year-old male was seen in clinic for evaluation of a supraumbilical bulge that he noticed about 2 months ago. The bulge was above his belly button and once in a while he noticed that the bulge was harder on palpation. He had discomfort at the bulge but no severe pain. He was not sure what was making his discomfort worse. With standing and walking he noticed the bulge was more prominent. Patient had no episodes of incarceration. When he was seen by his primary care doctor, an abdominal ultrasound was obtained that showed 3.7 x 3 cm fatty containing umbilical hernia. On clinical exam at the superior aspect of the umbilicus patient had a palpable bulge that was extending to the left and superior of the umbilicus. The bulge was approximately golf ball in size. The bulge was not completely reducible. Given patient's clinical history and his physical exam, open supraumbilical/ventral hernia repair was recommended. The procedures asks detail. The risks associated procedure including infection, bleeding, injury to intra-abdominal organs, and hernia recurrence were all discussed with the patient, and he agreed to proceed. Procedure Description: After discussing the risks and benefits of the procedure, the patient signed informed consent.? The operative site was marked and the patient was brought to the operating room and placed on the operating table in supine position.? Care was taken to pad the patient's pressure points.?? The patient was then intubated by anesthesia.?? The operative site was then prepped and draped in the usual sterile fashion.? A time-out was then performed. Local anesthetic was injected at the surgical site superior to the umbilicus. A supraumbilical vertical surgical incision was made with a scalpel. Subcutaneous fat was divided with cautery. The hernia sac was immediately identified and was located just superior to the umbilicus. The hernia sac was mobilized off the subcutaneous fat. The fascial defect was identified and was grasped with Gloria clamps. This was approximately 1.5 cm in largest dimension. Preperitoneal fat was incarcerated through this fascial defect. The fascial defect was cleared of subcutaneous fat with cautery. The preperitoneal fat was then reduced into the preperitoneal space and preperitoneal space was developed for mesh placement. This was done with cautery with care taken to avoid injury to intra-abdominal organs. The abdominal cavity was not entered. Surrounding fascia was palpated and no fascial defect were identified. A small Ventralex ST mesh was then inserted into preperitoneal space and secured in place with interrupted 0-0 Nurolon sutures. The fascia was closed over the mesh with a running 2-0 Vicryl suture. Subcutaneous fat was then further examined and local anesthetic was injected in the subcutaneous fat and surrounding fascia. A fatty bulge was identified in the left superior subcutaneous space. This was palpated further and bluntly a golf ball-sized fatty bulge was identified and reduced from the subcutaneous fat. This was traced down to the anterior fascia and a second fascial defect was identified. This was superior to the supraumbilical fascial defect. This second incarcerated hernia was then cleared from subcutaneous fat with cautery. The incarcerated preperitoneal fat was mobilized off the fascia and reduced into the preperitoneal space. This superior anterior fascial defect was 2 cm superior to the already repaired fascial defect, and was measuring 2 cm in the largest dimension. Because the surrounding fascia was weak and the fascial bridge was thin, I decided to remove the already placed Ventralex ST mesh and repair both defects with a common mesh patch. The Ventralex ST mesh was then removed by removing Nurolon sutures and the Vicryl suture. This mesh was completely removed from preperitoneal space and discarded. The connecting fascial bridge was then divided with cautery. Both anterior fascial defects were then now combined into the larger anterior fascial defect that was measuring 4 x 5 cm. Preperitoneal space was then further developed with cautery for mesh placement. Hemostasis was achieved with cautery. Ventrio ST mesh 8 x 12 cm was then inserted into preperitoneal space. The mesh was secured in place with interrupted 0-0 Nurolon sutures. The anterior fascia was then closed over the mesh with a running 2-0 Vicryl suture. Subcutaneous fat was then reapproximated with interrupted 3-0 Vicryl sutures. The dermis was then closed with interrupted 3-0 Vicryl sutures. The skin was then closed with a running 4- 0 Monocryl stitch. Steri-Strips were placed over the incision. 2 x 2 gauze was placed into the umbilicus and the incision was covered by dry 4 x 4 gauze and tape. All counts were correct at the end of the case. ? The patient was then woken and transported to the recovery area in stable condition. ? The patient tolerated the procedure well. Findings: Two separate fascial defects superior to the umbilicus with thin surrounding fascia. Both fascial defects were combined into a common defect and this was repaired with 8 x 12 cm mesh. Implants: Ventrio ST mesh Anesthesia: GETA Surgeon: Daniel Leone MD Estimated blood loss (mL): 5 Condition: stable Disposition: PACU
--- NOTE | 2024-06-09 09:37 | SUR.PHASEI ---
patient met discharge criteria per anesthesia
[2024-06-09] MEDS: OxyCODONE/APAP 5-325 TABLET PO (10:11)
== END 2024-06-09 10:34 | disposition home or self-care (01) ==
PROVIDERS: PCP Emergency Medicine; Visit Provider Surgery
PROC: (CPT 49594; principal; 2024-06-09 07:30)
DX: K43.6 Other and unspecified ventral hernia with obstruction, without gangrene (principal)
CPT/HCPCS: 49594; 00752; 00830; 00832; A4467; A9270; C1781; J0330; J0665; J0690; J1100; J1170; J2250; J2405; J2704; J3010; J3490; J7120

== ENCOUNTER 2024-06-18 08:02 | Outpatient (CLI) | payer OTHER, SELFPAY ==
--- OUTSIDE RECORDS SUMMARY | 2024-06-18 08:04 | XMS_ITS | Encounter Summary ---
Author Organization [facility] Address [address] [place] [address] Care Team Providers Care Meat Soaker Name Role Phone No Ref-Primary, Physician Primary Care Provider Adin Roldan DPM Unavailable [phone] Encounter Details Date Type Department Care Team (Late st Contact Info) Description 05/23/2007 Clinic Report (Delivery Consultant) [facility] [address] [place] [address] [address] [place] [phone] Lee Shankar MD XXX RETIRED JUL 2022 [place], [place] [id number] Social History Tobacco Use Types Packs/Day Years [...] on filedocumented in this encounter Care Teams Meat Soaker Relationship Specialty Start Date End Date No Ref-Primary, Physician PCP - General 09/04/19 Adin Roldan DPM [id number] [address] Assigned Musculoskeletal Provider 07/07/22 05/28/24 documented as of this encounter
--- OUTSIDE RECORDS SUMMARY | 2024-06-18 08:04 | XMS_ITS | Encounter Summary ---
Author Organization [facility] Address [address] [place] [address] Care Team Providers Care Alarm Technician Name Role Phone No Ref-Primary, Physician Primary Care Provider Adin Roldan DPM Unavailable [phone] Encounter Details Date Type Department Care Team (Late st Contact Info) Description 01/09/2011 Clinic Report (Medical Insurance Verifier) [address] [phone] Avtar Wiley [place] [address] Social History Tobacco Use Types Packs/Day Years [...] on filedocumented in this encounter Care Teams Alarm Technician Relationship Specialty Start Date End Date No Ref-Primary, Physician PCP - General 09/04/19 Adin Roldan DPM [address] [place] [address] Assigned Musculoskeletal Provider 07/07/22 05/28/24 documented as of this encounter
--- OUTSIDE RECORDS SUMMARY | 2024-06-18 08:04 | XMS_ITS | Encounter Summary ---
Author Organization [facility] Address [address] [place] [address] Care Team Providers Care Solution Make Up Operator Name Role Phone No Ref-Primary, Physician Primary Care Provider Adin Roldan DPM Unavailable [phone] Encounter Details Date Type Department Care Team (Late st Contact Info) Description 01/01/2011 Clinic Report (Safety Equipment Tester) [address] [phone] Avtar Wiley MD [place] [address] Social History Tobacco Use Types Packs/Day Years [...] on filedocumented in this encounter Care Teams Solution Make Up Operator Relationship Specialty Start Date End Date No Ref-Primary, Physician PCP - General 09/04/19 Adin Roldan DPM [address] [address] Assigned Musculoskeletal Provider 07/07/22 05/28/24 documented as of this encounter
--- OUTSIDE RECORDS SUMMARY | 2024-06-18 08:04 | XMS_ITS | Encounter Summary ---
Author Organization [place] Address [address] [place] [address] Care Team Providers Care Air And Water Filler Name Role Phone No Ref-Primary, Physician Primary Care Provider Adin Roldan DPM Unavailable [phone] Encounter Details Date Type Department Care Team (Late st Contact Info) Description 10/17/2007 Clinic Report (Pharmacy District Manager) [address] [phone] Izabela Ospina NP [facility] [address] [place] [id number] Social History Tobacco Use Types Packs/Day Years [...] for cough. Plan: None Patient Instructions: None SCAPER HELPER documented in this encounter Plan of Treatment Not on file documented as of this encounter Visit Diagnoses Not on filedocumented in this encounter Care Teams Air And Water Filler Relationship Specialty Start Date End Date No Ref-Primary, Physician PCP - General 09/04/19 Adin Roldan DPM [address] [address] Assigned Musculoskeletal Provider 07/07/22 05/28/24 documented as of this encounter
--- OUTSIDE RECORDS SUMMARY | 2024-06-18 08:04 | XMS_ITS | Encounter Summary ---
Author Organization [facility] Address [address] [place] [address] Care Team Providers Care Patient Care Manager Name Role Phone No Ref-Primary, Physician Primary Care Provider Adin Roldan DPM Unavailable [phone] Encounter Details Date Type Department Care Team (Late st Contact Info) Description 12/25/2010 Clinic Report (Production Line Manager) [facility] [address] [place] [address] [address] [place] [phone] Lee Shankar MD XXX RETIRED JUL 2022 [place] [address] Social History Tobacco Use Types Packs/Day Years Used Date Smoking Tobacco: Never Assessed Sex and Gender Information Value Date Recorded Sex Assigned at Not on file Gender Identity Not on file Sexual Orientation Not on file documented as of this encounter Progress Notes * Lee Shankar MD - 08/30/2012 12:01 AM CST CC/HPI: [...] on filedocumented in this encounter Care Teams Patient Care Manager Relationship Specialty Start Date End Date No Ref-Primary, Physician PCP - General 09/04/19 Adin Roldan DPM [address] [address] Assigned Musculoskeletal Provider 07/07/22 05/28/24 documented as of this encounter
--- OUTSIDE RECORDS SUMMARY | 2024-06-18 08:04 | XMS_ITS | Encounter Summary ---
Author Organization [place] Address [address] [place] [address] Care Team Providers Care Right Of Way Cutter Name Role Phone No Ref-Primary, Physician Primary Care Provider Adin Roldan DPM Unavailable [phone] Encounter Details Date Type Department Care Team (Late st Contact Info) Description 11/01/2009 Clinic Report (Stenciling Machine Tender) [address] [phone] Hortensia Ascencio DO Social History Tobacco Use Types Packs/Day Years Used Date Smoking Tobacco: Never Assessed Sex and Gender Information Value Date Recorded Sex Assigned at Not on file Gender Identity Not on file Sexual Orientation Not on file documented as of this encounter Progress Notes * Hortensia Asecncio DO - 08/30/2012 5:31 AM CST CC/HPI: [...] unspecified Rx: Nasacort AQ 55 mcg Nasal [place] Aerosol, NASAL, for a total of 2 [...] and wishes to proceed. Patient Instructions: None N MAKER documented in this encounter Plan of Treatment Not on file documented as of this encounter Visit Diagnoses Not on filedocumented in this encounter Care Teams Right Of Way Cutter Relationship Specialty Start Date End Date No Ref-Primary, Physician PCP - General 09/04/19 Adin Roldan DPM [address] [address] Assigned Musculoskeletal Provider 07/07/22 05/28/24 documented as of this encounter
--- OUTSIDE RECORDS SUMMARY | 2024-06-18 08:04 | XMS_ITS | Encounter Summary ---
Author Organization [facility] Address [address] [place] [address] Care Team Providers Care Hearing Instrument Specialist Name Role Phone No Ref-Primary, Physician Primary Care Provider Adin Roldan DPM Unavailable [phone] Encounter Details Date Type Department Care Team (Late st Contact Info) Description 01/31/2008 Clinic Report (Lead Operator) [address] [phone] Fay Smith MD NO INFO AVAILABLE 12/19/2022 [...] 2 thru 5. Fluticasone 50 mcg/Actuation Nasal [place], Susp, 2 [place], Suspension, NASAL, QD, 30 days, 11 refills, for a total of one. Plan: None Patient Instructions: None documented in this encounter Plan of Treatment Not on file documented as of this encounter Visit Diagnoses Not on filedocumented in this encounter Care Teams Hearing Instrument Specialist Relationship Specialty Start Date End Date No Ref-Primary, Physician PCP - General 09/04/19 Adin Roldan DPM [address] [address] Assigned Musculoskeletal Provider 07/07/22 05/28/24 documented as of this encounter
--- OUTSIDE RECORDS SUMMARY | 2024-06-18 08:04 | XMS_ITS | Encounter Summary ---
Author Organization [facility] Address [address] [place] [address] Care Team Providers Care Flight Surveyor Name Role Phone No Ref-Primary, Physician Primary Care Provider Adin Roldan DPM Unavailable [phone] Encounter Details Date Type Department Care Team (Late st Contact Info) Description 12/28/2010 Clinic Report (Armament Aircraft Mechanic) [address] [phone] Avtar Wiley MD [place] [address] Social History Tobacco Use Types Packs/Day Years [...] on filedocumented in this encounter Care Teams Flight Surveyor Relationship Specialty Start Date End Date No Ref-Primary, Physician PCP - General 09/04/19 Adin Roldan DPM [address] [address] Assigned Musculoskeletal Provider 07/07/22 05/28/24 documented as of this encounter
--- OUTSIDE RECORDS SUMMARY | 2024-06-18 08:04 | XMS_ITS | Encounter Summary ---
Author Organization [facility] Address [address] [place] [address] Care Team Providers Care Cycle Liaison Name Role Phone No Ref-Primary, Physician Primary Care Provider Adin Roldan DPM Unavailable [phone] Encounter Details Date Type Department Care Team (Late st Contact Info) Description 05/01/2012 Clinic Report (Retort Feeder Ground Bone) [facility] [address] [place] [address] [address] [place] [address] Kalia Grullon MD [place] [address] [place] [address] Social History Tobacco Use Types Packs/Day Years [...] on filedocumented in this encounter Care Teams Cycle Liaison Relationship Specialty Start Date End Date No Ref-Primary, Physician PCP - General 09/04/19 Adin Roldan DPM [address] [address] Assigned Musculoskeletal Provider 07/07/22 05/28/24 documented as of this encounter
--- OUTSIDE RECORDS SUMMARY | 2024-06-18 08:04 | XMS_ITS | Clinical Summary ---
Author Organization [facility] Address [address] [place] [address] Care Team Providers Care Armored Car Driver Name Role Phone No Ref-Primary, Physician Primary [...] Comments Blood Pressure 146/94 08/27/2023 3:49 PM TRAP OPERATOR Pulse 64 08/27/2023 3:49 PM TRAP OPERATOR Temperature 36.7 ??C (98.1 ??F) 08/27/2023 3:49 PM CS T Respiratory Rate 14 08/27/2023 3:49 PM TRAP OPERATOR Oxygen Saturation 98% 08/27/2023 3:49 PM TRAP OPERATOR Inhaled Oxygen Concentration - - Weight 94.8 kg (209 lb) 08/27/2023 3:49 PM TRAP OPERATOR Height - - Body Mass Index - [...] CDT Jayy Smith MD LAB - [facility] HISTORICAL RESULTS * Glucose Serum ([facility]) (12/28/2010 6:07 PM CDT) Glucose 75 65 - 99 mg/dL [facility] HISTORICAL RESULTS 12/28/2010 6:07 PM CDT 12/29/2010 6:36 PM CDT Jayy Smith MD LAB - [facility] HISTORICAL RESULTS from Last 3 Months or Most Recently Relevant to Health Maintenance Care Teams Armored Car Driver Relationship Specialty Start Date End Date No Ref-Primary, Physician PCP - General 09/04/19
--- OUTSIDE RECORDS SUMMARY | 2024-06-18 08:04 | XMS_ITS | Encounter Summary ---
Author Organization [facility] Address [address] [place] [address] Care Team Providers Care Sandblast Or Shotblast Equipment Tender Name Role Phone No Ref-Primary, Physician Primary Care Provider Adin Roldan DPM Unavailable [phone] Encounter Details Date Type Department Care Team (Late st Contact Info) Description 06/02/2008 Clinic Report (Department Specialist) [facility] [address] [place] [address] [address] [place] [phone] Lee Shankar MD XXX RETIRED JUL 2022 [place], [place] [address] Social History Tobacco Use Types Packs/Day Years [...] bottles.. Current Medication: Fluticasone 50 mcg/Actuation Nasal [place], Susp, 2 [place], Suspension, NASAL, QD, 30 days, 11 refills, [...] on filedocumented in this encounter Care Teams Sandblast Or Shotblast Equipment Tender Relationship Specialty Start Date End Date No Ref-Primary, Physician PCP - General 09/04/19 Adin Roldan DPM [address] [place] [address] Assigned Musculoskeletal Provider 07/07/22 05/28/24 documented as of this encounter
--- OUTSIDE RECORDS SUMMARY | 2024-06-18 08:04 | XMS_ITS | Encounter Summary ---
Author Organization [facility] Address [address] [place] [address] Care Team Providers Care Timber Trimmer Name Role Phone No Ref-Primary, Physician Primary Care Provider Adin Roldan DPM Unavailable [phone] Encounter Details Date Type Department Care Team (Late st Contact Info) Description 12/28/2010 Clinic Report (Log Chipper) [address] [phone] Jayy Smith MD NO INFO AVAILABLE 08/10/2022 [...] reactions. He presented with preop. Surgery at [facility]. The patient has been referred by [...] on filedocumented in this encounter Care Teams Timber Trimmer Relationship Specialty Start Date End Date No Ref-Primary, Physician PCP - General 09/04/19 Adin Roldan DPM [address] [address] Assigned Musculoskeletal Provider 07/07/22 05/28/24 documented as of this encounter
--- OUTSIDE RECORDS SUMMARY | 2024-06-18 08:04 | XMS_ITS | Referral Summary ---
Author Organization [facility] Address [address] [place] [address] Care Team Providers Care Program Advisor Name Role Phone No Ref-Primary, Physician Primary [...] Comments Blood Pressure 146/94 08/27/2023 3:49 PM CLINICAL SUPPORT MANAGER Pulse 64 08/27/2023 3:49 PM CLINICAL SUPPORT MANAGER Temperature 36.7 ??C (98.1 ??F) 08/27/2023 3:49 PM CS T Respiratory Rate 14 08/27/2023 3:49 PM CLINICAL SUPPORT MANAGER Oxygen Saturation 98% 08/27/2023 3:49 PM CLINICAL SUPPORT MANAGER Inhaled Oxygen Concentration - - Weight 94.8 kg (209 lb) 08/27/2023 3:49 PM CLINICAL SUPPORT MANAGER Height - - Body Mass Index - [...] MD LAB - [facility] Performing Organization Address City/[facility] Co de Phone Number [facility] HISTORICAL RESULTS * Glucose Serum ([facility]) (12/28/2010 6:07 PM CDT) Glucose 75 65 - 99 mg/dL [facility] HISTORICAL RESULTS 12/28/2010 6:07 PM CDT 12/29/2010 6:36 PM CDT Jayy Smith MD LAB - [facility] HISTORICAL RESULTS from Last 3 Months or Most Recently Relevant to Health Maintenance Care Teams Program Advisor Relationship Specialty Start Date End Date No Ref-Primary, Physician PCP - General 09/04/19
--- NOTE | 2024-06-18 08:15 | CRLHL7_ITS ---
For Patients: As a result of the Century Cures Act, medical imaging exams and procedure reports are released immediately into your electronic medical record. You may view this report before your referring provider. If you have questions, please contact your health care provider. INDICATION: 53 year-old male. History of an undescended testicle on the right. Left hemiscrotal prominence. Evaluate hydrocele. TECHNIQUE : Directed left testicular/hemiscrotum ultrasound. FINDINGS: The left testicle measures 5.1 x 3.4 x 4.1 cm. No left testicular mass. No torsion. Blood flow is identified in the left testicle both arterial and venous. The left epididymal head is unremarkable. Large left-sided hydrocele. No varicocele. IMPRESSION: Large left-sided hydrocele. Normal left testicle. Dictated by Lee Kelsey MD @ 06/18/2024 12:53:47 PM (Electronically Signed)
== END 2024-06-18 08:03 | disposition home or self-care (01) ==
LOC: US 08:03
PROVIDERS: PCP Emergency Medicine; Visit Provider Surgery
DX: Q55.20 Unspecified congenital malformations of testis and scrotum (principal); N43.2 Other hydrocele
CPT/HCPCS: 76870; 93976

== ENCOUNTER 2024-10-27 10:00 | Outpatient (RCR) | payer OTHER, SELFPAY ==
[2024-05-05 11:23] LABS: Hemoglobin* 14.9 gm/dL (13.5-17.5); Immature Granulocytes Pct Auto 0.2 %; Mean Corpuscular HGB Conc 35 gm/dL (32-36); Mean Corpuscular Hemoglobin 31 pg (26-34); Mean Corpuscular Volume 90 fL (80-100); Monocytes Percent Auto 9.9 % (0.0-11.0); Neutrophils Percent Auto 49.9 % (42.0-72.0); Platelet Count* 93 K/uL (140-440); RDW Coefficient of Variation % 11.9 % (11.5-15.5); Red Blood Count 4.78 m/uL (4.30-5.90); White Blood Count* 4.13 K/uL (4.50-11.00)
[2024-05-05 11:40] LABS: Slide Review Reflex No
[2024-05-05 11:42] LABS: Albumin* 4.4 g/dL (3.3-5.0); Chloride* 106 mmol/L (96-114)
[2024-05-05 11:43] LABS: Potassium* 4.3 mmol/L (3.6-5.1); Sodium* 136 mmol/L (135-149)
[2024-05-05 11:45] LABS: Anion Gap 4 mEq/L (7-15); Aspartate Amino Transferase* 20 U/L (12-35); Bilirubin Total* 0.6 mg/dL (0.1-1.5); Carbon Dioxide* 26 mmol/L (20-32); Estimated Glomerular Filt Rate 89 ml/min
[2024-05-05 11:46] LABS: Alanine Aminotransferase* 19 U/L (4-50); Alkaline Phosphatase* 60 U/L (40-150); Blood Urea Nitrogen* 15 mg/dL (7-30); Calcium* 9.7 mg/dL (8.4-10.6); Glucose* 111 mg/dL (60-115)
[2024-05-05 11:49] LABS: INR 0.94 (0.91-1.10); Partial Thromboplastin Time* 27 Seconds (23-33); Prothrombin Time 13.1 Seconds
[2024-05-05 12:35] LABS: Vitamin B12* 295 pg/mL (243-894)
[2024-05-05 12:41] LABS: Hepatitis B Surface Antigen* Negative (Negative)
[2024-05-05 12:58] LABS: Hepatitis C Virus Antibody* Negative (Negative)
[2024-05-05 13:03] LABS: HIV 1/2/P24 Combo Screen* Negative (Negative)
[2024-05-06 14:45] LABS: Hepatitis B Core Antibody, IgM Negative (Negative)
[2024-05-06 15:42] LABS: Copper, Serum/Plasma 111.6 ug/dL (70.0-140.0)
[2024-10-27 10:10] LABS: Basophils Percent Auto 0.3 % (0.0-3.0); Hemoglobin* 14.2 gm/dL (13.5-17.5); Immature Granulocytes Pct Auto 0.3 %; Lymphocytes Percent Auto 43.3 % (20-44); Mean Corpuscular HGB Conc 35 gm/dL (32-36); Mean Corpuscular Hemoglobin 31 pg (26-34); Mean Corpuscular Volume 90 fL (80-100); Neutrophils Percent Auto 45.1 % (42.0-72.0); Platelet Count* 95 K/uL (140-440); RDW Coefficient of Variation % 12.2 % (11.5-15.5); Red Blood Count 4.54 m/uL (4.30-5.90); White Blood Count* 3.63 K/uL (4.50-11.00)
[2024-10-27 10:34] LABS: Slide Review Reflex No
[2024-10-27 12:17] LABS: Vitamin B12* 673 pg/mL (243-894)
[2024-10-28 16:41] LABS: Folate, Serum 14.7 ng/mL (>=5.9)
== END 2024-11-01 23:59 | disposition home or self-care (01) ==
LOC: CCIC 10:00
PROVIDERS: PCP Emergency Medicine; Referring Provider Emergency Medicine; Visit Provider Internal Medicine Hematology & Oncology
DX: D69.3 Immune thrombocytopenic purpura (principal)
CPT/HCPCS: 36415; 80053; 82525; 82607; 82746; 85025; 85610; 85730; 86703; 86705; 86803; 87340; 99214; 99215; G0463

== ENCOUNTER 2024-12-08 13:13 | Outpatient (CLI) | payer OTHER, SELFPAY | END 2024-12-08 13:14 | disposition home or self-care (01) | LOC: LKVREF 13:13 | PROVIDERS: PCP Emergency Medicine; Visit Provider Emergency Medicine | DX: I10 Essential (primary) hypertension (principal); Z01.818 Encounter for other preprocedural examination | CPT/HCPCS: 80048 ==

== ENCOUNTER 2024-12-15 10:39 | Outpatient (CLI) | payer OTHER, SELFPAY ==
[2024-12-15 10:46] VITALS: BP 136/77; PULSE 67; RESP 14; TEMP 36.6; O2SAT 98; BMI 28.1
[2024-12-15 11:54] VITALS: BP 89/58; PULSE 60; RESP 16; O2SAT 96
--- NOTE | 2024-12-15 11:54 | W.ANESCHARGE ---
Anesthesia Charges Start Date/Time Anesthesia Start Date: 12/15/24 Anesthesia Start Time: 11:34 Stop Date/Time Anesthesia Stop Date: 12/15/24 Anesthesia Stop Time: 11:52 Coding CPT Codes CPT Codes: ANESTH BONE ASPIRATE/BX - 85694 ([id number]) P2 - PATIENT W/MILD SYST DISEASE, QZ - SENIOR CYTOGENETICS LABORATORY DIRECTOR SVC W/O FERRYBOAT DECKHAND BY
[2024-12-15 12:02] LABS: Basophils Percent Auto 0.3 % (0.0-3.0); Hematocrit 40.7 % (37.0-53.0); Immature Granulocytes Pct Auto 0.3 %; Immature Reticulocyte Fraction 13.9 % (2.3-13.4); Lymphocytes Percent Auto 37.6 % (20-44); Mean Corpuscular HGB Conc 34 gm/dL (32-36); Mean Corpuscular Hemoglobin 32 pg (26-34); Mean Corpuscular Volume 92 fL (80-100); Monocytes Percent Auto 10.6 % (0.0-11.0); Neutrophils Percent Auto 51.2 % (42.0-72.0); Platelet Count* 93 K/uL (140-440); Red Blood Count 4.43 m/uL (4.30-5.90); Reticulocyte Hemoglobin Equivi 33.9 pg (29.0-35.0); Reticulocyte Percent 1.6 % (0.5-2.0); Reticulocytes Absolute 0.07 # (0.03-0.08); White Blood Count* 3.88 K/uL (4.50-11.00)
[2024-12-15 12:05] VITALS: BP 97/62; PULSE 56; RESP 16; O2SAT 96
[2024-12-15 12:14] VITALS: BP 98/63; PULSE 55; RESP 16; O2SAT 96
[2024-12-15 12:18] LABS: Slide Review Reflex No
== END 2024-12-15 12:35 | disposition home or self-care (01) ==
LOC: OP CLINIC 10:39
PROVIDERS: PCP Emergency Medicine; Visit Provider Internal Medicine Hematology & Oncology
DX: D69.6 Thrombocytopenia, unspecified (principal)
CPT/HCPCS: 01112; 36415; 38222; 85025; 85045; J1644; J2003; J2704

== ENCOUNTER 2024-12-28 14:30 | Outpatient (RCR) | payer OTHER, SELFPAY ==
--- NOTE | 2024-11-03 07:31 | URNOTE ---
Request received for authorization for Vitamin B12 ([id number]). Prior authorization is not required per [facility] site Ref#[id number].
[2024-11-10 14:45] VITALS: BP 123/73; PULSE 67; RESP 16; TEMP 36.4; O2SAT 99
[2024-11-17 14:49] VITALS: BP 131/77; PULSE 73; RESP 16; TEMP 36.9; O2SAT 97
[2024-11-24 14:46] VITALS: BP 123/74; PULSE 73; RESP 16; TEMP 36.4; O2SAT 98
[2024-11-24 14:51] LABS: Hematocrit 42.7 % (37.0-53.0); Hemoglobin* 14.6 gm/dL (13.5-17.5); Immature Granulocytes Abs Auto 0.04 K/uL (0.00-0.30); Immature Granulocytes Pct Auto 0.7 %; Lymphocytes Absolute Auto 1.27 K/uL (0.90-2.90); Mean Corpuscular HGB Conc 34 gm/dL (32-36); Mean Corpuscular Hemoglobin 32 pg (26-34); Mean Corpuscular Volume 93 fL (80-100); RDW Coefficient of Variation % 12.4 % (11.5-15.5); Red Blood Count 4.61 m/uL (4.30-5.90); White Blood Count* 5.65 K/uL (4.50-11.00)
[2024-11-24 14:53] LABS: Slide Review Reflex No
[2024-11-24 15:53] LABS: Vitamin B12* 781 pg/mL (243-894)
[2024-12-08 14:44] VITALS: BP 123/75; PULSE 67; RESP 16; TEMP 36.2; O2SAT 98
[2024-12-15 14:38] VITALS: BP 121/72; PULSE 56; RESP 16; TEMP 36; O2SAT 99
[2024-12-22 14:08] VITALS: BP 104/61; PULSE 68; RESP 16; TEMP 36.6; O2SAT 97
== END 2025-05-02 23:59 | disposition home or self-care (01) ==
LOC: CCIC 14:30
PROVIDERS: PCP Emergency Medicine; Referring Provider Emergency Medicine; Visit Provider Internal Medicine Hematology & Oncology
DX: D69.6 Thrombocytopenia, unspecified (principal); D69.3 Immune thrombocytopenic purpura
CPT/HCPCS: 36415; 82607; 85025; 96372; 99213; 99214; G0463; J3420

== ENCOUNTER 2025-02-25 08:29 | Outpatient (CLI) | payer OTHER, SELFPAY | END 2025-02-25 08:30 | disposition home or self-care (01) | LOC: NFLDREF 02-28 20:54 | PROVIDERS: PCP Emergency Medicine; Referring Provider Emergency Medicine; Visit Provider Emergency Medicine | DX: I10 Essential (primary) hypertension (principal); Z12.5 Encounter for screening for malignant neoplasm of prostate | CPT/HCPCS: 80048; 80061; G0103 ==